=== PATIENT | male | born 1995 | race Caucasian/White ===

== ENCOUNTER 2020-12-10 07:23 | Day surgery (SDC) | payer OTHER ==
[2020-12-08 10:26] VITALS: BMI 24.3
[2020-12-10] MEDS ORDERED: KETAMINE HCL 500 MG/10 ML VIAL ONE (09:41)
[2020-12-10] MEDS ORDERED: ONDANSETRON 4 MG/2 ML VIAL ONE (11:52)
[2020-12-10] MEDS ORDERED: KETOROLAC TROMETHAMINE 30 MG/1 ML VIAL IVPUSH PRN (12:34)
[2020-12-10] MEDS ORDERED: PROMETHAZINE HCL 25 MG/1 ML VIAL IVPUSH PRN (12:35)
[2020-12-11 10:07] LABS: SARS-CoV-2 NAA Not Detected (Not Detected)
[2020-12-13 11:38] VITALS: PULSE 61; TEMP 98.4
[2020-12-13 16:13] VITALS: BP 114/72
== END 2020-12-10 16:30 | disposition home or self-care (01) ==
LOC: FECT 07:23
PROVIDERS: ATTEND Psychiatry & Neurology Psychiatry
PROC: GZB4ZZZ Other Electroconvulsive Therapy (ICD-10-PCS; principal; 2020-12-10 09:30)
DX: F32.9 Major depressive disorder, single episode, unspecified (principal)
CPT/HCPCS: 90870; 94760; C9803; U0003; U0005

== ENCOUNTER 2020-12-13 08:29 | Day surgery (SDC) | payer OTHER ==
[2020-12-08 10:38] VITALS: BMI 24.3
[2020-12-13 09:13] VITALS: TEMP 98.4
[2020-12-13] MEDS ORDERED: KETAMINE HCL 500 MG/10 ML VIAL ONE (10:16)
[2020-12-13 13:39] VITALS: BP 118/78; PULSE 63
[2020-12-14 13:08] LABS: SARS-CoV-2 NAA Not Detected (Not Detected)
== END 2020-12-13 14:00 | disposition home or self-care (01) ==
LOC: FECT 08:29
PROVIDERS: ATTEND Psychiatry & Neurology Psychiatry
PROC: GZB4ZZZ Other Electroconvulsive Therapy (ICD-10-PCS; principal; 2020-12-13 11:00)
DX: F32.9 Major depressive disorder, single episode, unspecified (principal)
CPT/HCPCS: 90870; 94760; C9803; U0003; U0005

== ENCOUNTER 2020-12-16 07:21 | Day surgery (SDC) | payer OTHER ==
[2020-12-08 10:54] VITALS: BMI 24.3
[2020-12-16] MEDS ORDERED: KETAMINE HCL 500 MG/10 ML VIAL ONE (09:02)
[2020-12-16] MEDS ORDERED: ACETAMINOPHEN INJECTION 100 ML IVPB ONE (09:45)
[2020-12-16] MEDS ORDERED: ACETAMINOPHEN 1000 MG/100 ML VIAL (NON FORMULARY) IVPB ONE ×2 (09:47→12:14)
[2020-12-16 11:57] VITALS: TEMP 99.2
[2020-12-16 12:16] VITALS: BP 138/72; PULSE 76
== END 2020-12-16 11:45 | disposition home or self-care (01) ==
LOC: FECT 07:21
PROVIDERS: ATTEND Psychiatry & Neurology Psychiatry
PROC: GZB4ZZZ Other Electroconvulsive Therapy (ICD-10-PCS; principal; 2020-12-16 09:00)
DX: F32.9 Major depressive disorder, single episode, unspecified (principal)
CPT/HCPCS: 90870; 94760; J0131

== ENCOUNTER 2020-12-17 06:53 | Day surgery (SDC) | payer OTHER ==
[2020-12-13 16:18] VITALS: BMI 24.3
[2020-12-17] MEDS ORDERED: ACETAMINOPHEN INJECTION 100 ML IVPB ONE (08:50)
[2020-12-17] MEDS ORDERED: ONDANSETRON 4 MG/2 ML VIAL ONE (08:50)
[2020-12-17] MEDS ORDERED: ACETAMINOPHEN 1000 MG/100 ML VIAL (NON FORMULARY) IVPB ONE (08:58)
[2020-12-17] MEDS ORDERED: ONDANSETRON 4 MG/2 ML VIAL IVPUSH PRN (08:58)
[2020-12-17] MEDS ORDERED: PROMETHAZINE HCL 25 MG/1 ML VIAL IVPUSH PRN (08:58)
[2020-12-17 09:18] VITALS: TEMP 98.2
[2020-12-17 09:53] VITALS: BP 128/66; PULSE 78
[2020-12-18 15:07] LABS: SARS-CoV-2 NAA Not Detected (Not Detected)
== END 2020-12-17 10:05 | disposition home or self-care (01) ==
LOC: FECT 06:53
PROVIDERS: ATTEND Psychiatry & Neurology Psychiatry
PROC: GZB4ZZZ Other Electroconvulsive Therapy (ICD-10-PCS; principal; 2020-12-17 08:00)
DX: F32.9 Major depressive disorder, single episode, unspecified (principal)
CPT/HCPCS: 90870; 94760; C9803; J0131; U0003; U0005

== ENCOUNTER 2020-12-20 09:43 | Day surgery (SDC) | payer OTHER ==
[2020-12-08 11:02] VITALS: BMI 24.3
[2020-12-20] MEDS ORDERED: PROPOFOL 20 ML ONE (12:03)
[2020-12-20] MEDS ORDERED: SUCCINYLCHOLINE CHLORIDE 200 MG/10 ML SYRINGE ONE (12:04)
[2020-12-20] MEDS ORDERED: DEXAMETHASONE SOD PHOSPHATE 4 MG/1 ML VIAL ONE (12:08)
[2020-12-20] MEDS ORDERED: ONDANSETRON 4 MG/2 ML VIAL ONE (12:08)
[2020-12-20] MEDS ORDERED: KETOROLAC TROMETHAMINE 30 MG/1 ML VIAL ONE (12:08)
[2020-12-20 13:42] VITALS: TEMP 98
[2020-12-20 13:46] VITALS: BP 115/64; PULSE 77
[2020-12-21 14:08] LABS: SARS-CoV-2 NAA Not Detected (Not Detected)
== END 2020-12-20 13:35 | disposition home or self-care (01) ==
LOC: FECT 09:43
PROVIDERS: ATTEND Psychiatry & Neurology Psychiatry
PROC: GZB4ZZZ Other Electroconvulsive Therapy (ICD-10-PCS; principal; 2020-12-20 11:30)
DX: F32.9 Major depressive disorder, single episode, unspecified (principal)
CPT/HCPCS: 90870; 94760; C9803; U0003; U0005

== ENCOUNTER 2020-12-23 07:35 | Day surgery (SDC) | payer OTHER ==
[2020-12-14 08:46] VITALS: BMI 24.3
[2020-12-23] MEDS ORDERED: PROPOFOL 20 ML ONE ×2 (08:57→09:09)
[2020-12-23] MEDS ORDERED: SUCCINYLCHOLINE CHLORIDE 200 MG/10 ML SYRINGE ONE ×2 (08:57→09:09)
[2020-12-23] MEDS ORDERED: DEXAMETHASONE SOD PHOSPHATE 4 MG/1 ML VIAL ONE (09:09)
[2020-12-23] MEDS ORDERED: ONDANSETRON 4 MG/2 ML VIAL ONE (09:09)
[2020-12-23] MEDS ORDERED: KETOROLAC TROMETHAMINE 30 MG/1 ML VIAL ONE (09:09)
[2020-12-23] MEDS: ACETAMINOPHEN 325 MG TABLET (FP) PO ONE ×2 (09:45→09:52)
[2020-12-23] MEDS ORDERED: ACETAMINOPHEN 325 MG TABLET (FP) ONE (09:51)
[2020-12-23 10:32] VITALS: PULSE 71; TEMP 98.2
[2020-12-23 10:36] VITALS: BP 125/64
== END 2020-12-23 10:36 | disposition home or self-care (01) ==
LOC: FECT 07:35
PROVIDERS: ATTEND Psychiatry & Neurology Psychiatry
PROC: GZB4ZZZ Other Electroconvulsive Therapy (ICD-10-PCS; principal; 2020-12-23 09:00)
DX: F32.9 Major depressive disorder, single episode, unspecified (principal)
CPT/HCPCS: 90870; 94760

== ENCOUNTER 2020-12-24 06:15 | Day surgery (SDC) | payer OTHER ==
[2020-12-22 15:20] VITALS: BMI 24.3
[2020-12-24 08:50] VITALS: BP 119/70; PULSE 56; TEMP 97.8
[2020-12-25 14:07] LABS: SARS-CoV-2 NAA Not Detected (Not Detected)
== END 2020-12-24 08:40 | disposition home or self-care (01) ==
LOC: FECT 06:15
PROVIDERS: ATTEND Psychiatry & Neurology Psychiatry
PROC: GZB4ZZZ Other Electroconvulsive Therapy (ICD-10-PCS; principal; 2020-12-24 07:30)
DX: F32.9 Major depressive disorder, single episode, unspecified (principal)
CPT/HCPCS: 90870; 94760; C9803; U0003; U0005

== ENCOUNTER 2020-12-27 06:42 | Day surgery (SDC) | payer OTHER ==
[2020-12-14 08:58] VITALS: BMI 24.3
[2020-12-27] MEDS ORDERED: SUCCINYLCHOLINE CHLORIDE 200 MG/10 ML SYRINGE ONE (09:02)
[2020-12-27 09:58] VITALS: TEMP 98.6
[2020-12-27 10:10] VITALS: BP 125/71; PULSE 75
[2020-12-28 13:10] LABS: SARS-CoV-2 NAA Not Detected (Not Detected)
== END 2020-12-27 10:05 | disposition home or self-care (01) ==
LOC: FECT 06:42
PROVIDERS: ATTEND Psychiatry & Neurology Psychiatry
PROC: GZB4ZZZ Other Electroconvulsive Therapy (ICD-10-PCS; principal; 2020-12-27 08:30)
DX: F32.9 Major depressive disorder, single episode, unspecified (principal)
CPT/HCPCS: 90870; 94760; C9803; U0003; U0005

== ENCOUNTER 2020-12-30 10:34 | Day surgery (SDC) | payer OTHER ==
[2020-12-30 11:46] VITALS: BMI 24.8
[2020-12-30 13:18] VITALS: TEMP 98.6
[2020-12-30 13:34] VITALS: BP 112/64; PULSE 77
== END 2020-12-30 13:36 | disposition home or self-care (01) ==
LOC: FECT 10:34
PROVIDERS: ATTEND Psychiatry & Neurology Psychiatry
PROC: GZB4ZZZ Other Electroconvulsive Therapy (ICD-10-PCS; principal; 2020-12-30 12:00)
DX: F32.9 Major depressive disorder, single episode, unspecified (principal)
CPT/HCPCS: 90870; 94760

== ENCOUNTER 2020-12-31 06:22 | Day surgery (SDC) | payer OTHER ==
[2020-12-31 06:44] VITALS: BMI 24.3
[2020-12-31] MEDS ORDERED: SUCCINYLCHOLINE CHLORIDE 200 MG/10 ML SYRINGE ONE (07:23)
[2020-12-31] MEDS ORDERED: PROPOFOL 20 ML ONE (07:23)
[2020-12-31 08:17] VITALS: TEMP 97.8
[2020-12-31 10:07] VITALS: BP 117/65; PULSE 70
[2021-01-01 23:07] LABS: SARS-CoV-2 NAA Not Detected (Not Detected)
== END 2020-12-31 08:45 | disposition home or self-care (01) ==
LOC: FECT 06:22
PROVIDERS: ATTEND Psychiatry & Neurology Psychiatry
PROC: GZB4ZZZ Other Electroconvulsive Therapy (ICD-10-PCS; principal; 2020-12-31 07:30)
DX: F32.9 Major depressive disorder, single episode, unspecified (principal)
CPT/HCPCS: 90870; 94760; C9803; U0003; U0005

== ENCOUNTER 2021-01-03 08:14 | Day surgery (SDC) | payer OTHER ==
[2020-12-30 17:51] VITALS: BMI 24.3
[2021-01-03 10:57] VITALS: BP 125/74; PULSE 85; TEMP 97.9
== END 2021-01-03 11:23 | disposition home or self-care (01) ==
LOC: FECT 08:14
PROVIDERS: ATTEND Psychiatry & Neurology Psychiatry
PROC: GZB4ZZZ Other Electroconvulsive Therapy (ICD-10-PCS; principal; 2021-01-03 09:30)
DX: F32.9 Major depressive disorder, single episode, unspecified (principal)
CPT/HCPCS: 90870; 94760; C9803; U0003; U0005

== ENCOUNTER 2021-01-06 08:38 | Day surgery (SDC) | payer OTHER ==
[2020-12-31 09:10] VITALS: BMI 24.3
[2021-01-06 11:10] VITALS: TEMP 97.5
[2021-01-06 15:44] VITALS: BP 138/74; PULSE 84
== END 2021-01-06 11:55 | disposition home or self-care (01) ==
LOC: FECT 08:38
PROVIDERS: ATTEND Psychiatry & Neurology Psychiatry
PROC: GZB4ZZZ Other Electroconvulsive Therapy (ICD-10-PCS; principal; 2021-01-06 09:30)
DX: F32.9 Major depressive disorder, single episode, unspecified (principal)
CPT/HCPCS: 90870; 94760